=== PATIENT | male | born 2000 | race Hispanic/Latino ===

== ENCOUNTER 2020-10-10 11:42 | Emergency (ER) | payer OTHER ==
--- NOTE | 2020-10-10 15:15 | ER ---
Nurse's Notes [facility] Name: Chuck Lopez Age: 20 yrs Sex: Male : 2000 Arrival Date: 10/10/2020 Time: 11:47 Bed Waiting Private MD: Diagnosis: Presentation: 10/10 12:41 Chief complaint: Patient states: body aches, headache, and dizziness that began Tuesday. aa5 Pt reports Tuesday night he fell and hit his head on concrete and had negative CT head that day. Pt denies nausea/vomiting. Pt also states his urine is dark. Coronavirus screen: headache, Client presents with at least one sign or symptom that may indicate coronavirus-19. Standard/surgical mask placed on the client. Provider contacted for isolation considerations. Ebola Screen: Patient negative for fever greater than or equal to 101.5 degrees Fahrenheit, and additional compatible Ebola Virus Disease symptoms. Initial Sepsis Screen: Does the patient meet any 2 criteria? HR > 90 bpm. Does the patient have a suspected source of infection? No. Patient's initial sepsis screen is negative. Risk Assessment: Do you want to hurt yourself or someone else? Patient reports no desire to harm self or others. Onset of symptoms was September 2020. 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 - Social history:: Smoking status: Patient denies any tobacco usage or history of. Vital Signs: 12:41 BP 120 / 66; Pulse 95; Resp 16 S; Temp 100.1(O); Pulse Ox 100% on R/A; Weight 95.25 kg aa5 (R); Height 6 ft. 1 in. (185.42 cm) (R); Pain 7/10; 12:41 Body Mass Index 27.70 (95.25 kg, 185.42 cm) aa5 ED Course: 11:47 Patient arrived in ED. mr 12:40 Arm band placed on. aa5 12:42 Triage completed. aa5 13:04 Note: went to get pt from lobby, pt eloped. 13:05 Patient's name was called from ER lobby. No response. aa5 15:10 Patient's name was called from ER lobby. No response. aa5 15:14 Sam Pickett MD is Attending Physician. aa5 Administered Medications: No medications were administered Outcome: 15:14 Patient left the ED. aa5 Signatures: Donna Boothe Susan sj Calderon, Audri, RN RN aa5 Corrections: (The following items were deleted from the chart) 12:43 12:41 Chief complaint: Patient states: body aches, headache, and dizziness that began aa5 Tuesday. Pt reports Tuesday night he fell and hit his head on concrete and had negative CT head that day. Pt denies nausea/vomiting. aa5
[2020-10-10 15:19] VITALS: BP 120/66; TEMP 100.1; O2SAT 100
== END 2020-10-10 15:14 | disposition left against medical advice (07) ==
LOC: ER 11:42
DX: R51.9 Headache, unspecified (principal); R42 Dizziness and giddiness; Z53.21 Procedure and treatment not carried out due to patient leaving prior to being seen by health care provider
CPT/HCPCS: 99281